=== PATIENT | female | born 1935 | race Caucasian/White ===

== ENCOUNTER 2018-01-29 02:27 | Inpatient (IN) | payer OTHER, MEDICARE ==
[~2018-01-29] VITALS: Ht 165.1 cm; Wt 75.0 kg
[~2018-01-29 02:27] MED LIST: HYDROXYCHLOROQ200 M2 PO; LISINOPRIL-HCT1 EACH PO; METOPROLOL TAR100 M1 PO; OXYCODONE HCL5 M1 PO; VITAMIN D250000 UNIT PO; VITAMIN D350000 UNIT PO
--- NOTE | 2018-01-29 09:44 | Admission Core Measures ---
Acute Coronary Syndrome (CM) ACS Core Measures Acute Coronary Syndrome Diagnosis No Congestive Heart Failure (NEW) CHF Core Measures Congestive Heart Failure Diagnosis No Cerebrovascular Accident CVA Core Measures CVA/TIA Diagnosis No Venous Thromboembolism VTE Core Chandrika (View Protocol) VTE Risk Factors Surgery No Mechanical VTE Prophylaxis d/t N/A MechProphylax Ordered No VTE Pharm Prophylaxis d/t NA PharmProphylax ordered Problem List As ranked by this Provider includes Assessment & Plan 1. Cancer of sigmoid colon 2. Status post reversal of ileostomy HOME MEDS Home Med List Cholecalciferol (Vitamin D3) (Vitamin D3) 50,000 UNIT CAPSULE 1 CAP PO Q30D SUPPLEMENT (Reported) Lisinopril/Hydrochlorothiazide (Lisinopril-Hctz 20-12.5 MG Tab) 20 MG-12.5 MG TABLET 1 TAB PO BID BP (Reported) Metoprolol Tartrate 100 MG TABLET 1 TAB PO DAILY HEART/BP (Reported)
--- NOTE | 2018-01-29 09:50 | Operative Report ---
Operative/Inv Procedure Report Surgery Date: 01/29/18 Name of Procedure: Ileostomy reversal Pre-Operative Diagnosis: Colon cancer status post laparoscopic/robotic low anterior resection with diverting ileostomy Post-Operative Diagnosis: Same Estimated Blood Loss: scant Surgeon/Die Filer: Chris SINGLETON,Reynaldo Sawyer/Rian WYATT Anesthesia: general endotracheal tube Specimens: Ileostomy Operative Indication: Patient status post low anterior resection with diverting ileostomy. Follow-up barium enema shows no evidence of leak. She presents for elective reversal Operative/Procedure Note Note: After consent she is brought to the abnormally supine. General anesthesia obtained and her abdomen was prepped and draped. The skin was excised in elliptical fashion around the stoma. Subcutaneous tissues were dissected with cautery. There was a significant inflammatory reaction around the stoma site, normal for this stage in her healing. We dissected the stoma all the way down to the fascia with cautery and sharp dissection. We eventually got into a plane between the fascia/peritoneum and bowel. We then circumferentially dissected the bowel from the stoma site through that plane. This was treated with sharp dissection. All adhesions to the bowel were lysed. We then identified the cyst to ends of the bowel. It was an end ileostomy with the other and stapled near the terminal ileum that was in the soft tissue. Both areas were cleaned up and sites of transection created. Windows in the mesentery were developed with cautery and the 2 ends of the bowel stapled. This was accomplished with a LANI 80. The vasculature was then taken with the LigaSure device and stoma passed off the field. The bowel was then lined up with 3-0 silk suture and enterotomies created. Side to side anastomosis was created with the LANI 80. The common enterotomy was closed with a reload. The staple line was imbricated centrally where the staple lines converged. This was performed with 3-0 silk sutures in a Lembert fashion. Anastomosis was then expected and intact. The bowel was replaced in the perineal cavity. The wound was irrigated with saline. The fascia was closed in 2 layers of 0 Maxon sutures. Wound was irrigated with saline. Skin closed with shailesh with the central portion left open for packing with 1 inch Nu Gauze. Sterile dressings were applied. Sponge and needle counts are correct. CC: Slim SINGLETON,Jhony; Mike SINGLETON,Errol
--- NOTE | 2018-01-29 10:03 | Patient Discharge Instructions ---
Discharge Instructions General Discharge Information You were seen/treated for: Colon cancer status post laparoscopic/robotic low anterior resection with diverting ileostomy You had these procedures: Ileostomy reversal Watch for these problems: Increased pain, fever, nausea, vomiting, redness, swelling or drainage from incision Call Surgeon to remove: [place] Other wound care: Keep incision clean and dry the visiting nurse will change your dressing every other day. Special Instructions: Visiting nurse: ALGINATE DRESSING TO STOMA every other day take pain meds as needed. low fiber/low residue diet Diet Continue normal diet: No Recommended Diet: Low Residue Activity Full Activity/No Limits: No Activity Self Limited: Yes Pounds, do NOT lift more than: 10 Other activity limits: No heavy lifting or strenous activity until your follow up appointment Acute Coronary Syndrome Inclusion Criteria At DC or during hospital stay patient has or had the following: ACS DIAGNOSIS No Discharge Core Measures Meds if any: Prescribed or Continued at Discharge Meds if any: NOT Prescribed or Continued at Discharge Congestive Heart Failure Inclusion Criteria At DC or during hospital stay patient has or had the following: CHF DIAGNOSIS No Discharge Core Measures Meds if any: Prescribed or Continued at Discharge Meds if any: NOT Prescribed or Continued at Discharge Cerebrovascular accident Inclusion Criteria At DC or during hospital stay patient has or had the following: CVA/TIA Diagnosis No Discharge Core Measures Meds if any: Prescribed or Continued at Discharge Meds if any: NOT Prescribed or Continued at Discharge Venous thromboembolism Inclusion Criteria VTE Diagnosis No VTE Type NONE VTE Confirmed by (Test) NONE Discharge Core Measures - Per Current guidelines, there needs to be overlap - treatment for the first 5 days of Warfarin therapy. - If discharged on Warfarin prior to 5 days of - overlap therapy, the patient will need to be - assessed for post discharge needs including - *Post discharge parental anticoagulation - *Warfarin and/or parental anticoagulation education - *Follow up date to check INR post discharge At least 5 days overlap therapy as Inpatient No Meds if any: Prescribed or Continued at Discharge Note: Overlap Therapy is Warfarin and Anticoagulant Meds if any: NOT Prescribed or Continued at Discharge
[2018-01-29 14:20] VITALS: BP 110/60
--- NOTE | 2018-01-29 15:52 | PN- General Surgery ---
Subjective Subjective: c/o throat pain presently. No nausea or vommitting. NO chest pain or shortness of breath. No flatus. Clements in place. Objective Vital Signs and I&Os Vital Signs Date Time Temp Pulse Resp B/P B/P Pulse O2 O2 Flow FiO2 Mean Ox Delivery Rate 01/29 1420 97.9 72 20 110/60 96 Room Air Intake & Output 01/29 1600 01/29 0800 01/29 0000 01/28 1600 01/28 0800 01/28 0000 Intake Total Output Total Balance Patient 166 lb 160 lb Weight Weight Bed scale Measurement Method Physical Exam: Gen: Alert and oriented x3, no acute distress Cardaic: RRR, s1s2 Pulm: C T A bialterally, nonlabored Abd: Softly distended, dressing intact, bs absent Ext: Neurovascularly grossly intact, bialteral calves soft and non-tender Assessment/Plan Assessment/Plan POD 0 s/p ileostomy reversal -clear liquid -hep sub q for dvt ppx -protonix for gi ppx -oob encouraged -dc clements in am, strict i/o tonight -choloraseptic spray for throat pain now will discuss poc with Dr. Perez Core Measures Venous Thromboembolism VTE Risk Factors Surgery No Mechanical VTE Prophylaxis d/t N/A MechProphylax Ordered No VTE Pharm Prophylaxis d/t NA PharmProphylax ordered
[2018-01-29 16:24] VITALS: BP 130/70
[2018-01-29 18:30] VITALS: BP 112/60
[2018-01-29 22:36] VITALS: BP 118/68
[2018-01-30 02:36] VITALS: BP 122/64
[2018-01-30 06:37] VITALS: BP 110/66
--- NOTE | 2018-01-30 07:28 | PN- General Surgery ---
See Addendum Subjective Subjective: 82 y/o female S/P ileostomy reversal 01/29 Sitting upright in bed without complains. She feels generalized abdominal soreness, feels bowels moving but not passing gas. Objective Vital Signs and I&Os Vital Signs Date Time Temp Pulse Resp B/P B/P Pulse O2 O2 Flow FiO2 Mean Ox Delivery Rate 01/30 0637 97.7 64 20 110/66 98 Room Air 01/30 0236 98.1 58 18 122/64 96 Room Air 01/29 2236 97.8 56 20 118/68 95 /08 2008 82 120/62 01/29 1830 97.9 81 20 112/60 95 Room Air 01/29 1626 Room Air Room Air 01/29 1624 97.8 74 20 130/70 98 Room Air 01/29 1420 97.9 72 20 110/60 96 Room Air Intake & Output 01/30 0800 08/ 0000 0808 1600 01/29 0800 01/29 0000 01/28 1600 Intake Total 840 555 Output Total 550 400 Balance -550 440 555 Intake, IV 600 375 Intake, Oral 240 180 Output, Urine 550 400 Patient 165 lb 166 lb 160 lb Weight Weight Bed scale Measurement Method Physical Exam: alert and oriented, comfortable, answering questions chest- CTA symmetric without rales ronchi or wheeze heart- RRR without MRG Abdmen -rounded without distention dressings CDI, pos BS, voiding without difficulty not passing gas yet bilateral lower extremities without edema or tenderness Assessment/Plan Assessment/Plan POD 1 s/p ileostomy reversal -clear liquid diet advance per bowel function -hep sub q for dvt ppx -protonix for gi ppx -oob encouraged will discuss poc with Dr. Perez Core Measures Venous Thromboembolism VTE Risk Factors Surgery No Mechanical VTE Prophylaxis d/t N/A MechProphylax Ordered No VTE Pharm Prophylaxis d/t NA PharmProphylax ordered
[2018-01-30 08:45] LABS: ABSOLUTE BASOPHIL COUNT 0 /CUMM (0.0-0.2); ABSOLUTE EOSINOPHIL COUNT 0 /CUMM (0.0-0.7); ABSOLUTE GRANULOCYTE CT 10.9 /CUMM (1.4-6.5); ABSOLUTE LYMPH COUNT 1.9 /CUMM (1.2-3.4); ABSOLUTE MONOCYTE COUNT 0.8 /CUMM (0.10-0.60); BASOPHIL % 0.1 % (0.0-2.0); EOSINOPHIL % 0 % (0-5); GRANULOCYTE % 80.2 % (42.2-75.2); HEMATOCRIT 29.5 % (37-47); MEAN CORPUSCULAR HGB 26.4 PG (27.0-31.0); MEAN CORPUSCULAR HGB CONC 33.3 G/DL (33.0-37.0); MEAN CORPUSCULAR VOLUME 79.4 FL (81.0-99.0); MEAN PLATELET VOLUME 8.3 FL (7.4-10.4); PLATELET COUNT 254 /CUMM (130-400); RBC DISTRIBUTION WIDTH 14.3 % (11.5-14.5); RED BLOOD CELL CT 3.72 /CUMM (4.20-5.40); WHITE BLOOD CELL COUNT 13.6 /CUMM (4.8-10.8)
[2018-01-30 10:13] VITALS: BP 110/65
[2018-01-30 14:31] VITALS: BP 155/75
[2018-01-30 22:21] VITALS: BP 118/60
[2018-01-31 06:02] VITALS: BP 130/60
[2018-01-31] MEDS ORDERED: PROTONIX40 M3 PO (07:06)
[2018-01-31] MEDS ORDERED: OXYCODONE HCL5 M1 PO (07:06)
--- NOTE | 2018-01-31 07:07 | PN- Student ---
See Addendum Shannon Luis 01/31/18 0702: Subjective Subjective: This morning the pt is doing well. She passed gas yesterday and was advanced to a regular diet. She said that after eating some fish for dinner she had a BM. Tolerated the reg diet w/o nausea or vomiting. Her pain has been well controlled with pain medication ordered. Pt has been oob and ambulating. No clements, voiding w/o difficulty. Denies cp/sob. Objective Objective: Physical Exam: Gen: O&Ax3, laying comfortably in bed, in no apparent distress Lung: CTA Heart: systolic murmur, distant heart sounds Abd: soft, nt, nd, normoactive bs Skin: warm,dry Results Results: Laboratory Tests 01/30/18 08: Vital Signs Date Time Temp Pulse Resp B/P B/P Pulse O2 O2 Flow FiO2 Mean Ox Delivery Rate 01/31 0602 98.8 52 19 130/60 98 01/30 2221 98.3 64 19 118/60 95 Room Air 01/30 2048 64 118/60 01/30 1600 Room Air 01/30 1431 98.2 65 18 155/75 99 Room Air 01/30 1013 97.5 63 18 110/65 100 Room Air / 0931 64 110/66 / 0930 64 110/66 / 0800 Room Air 01/30 0637 97.7 64 20 110/66 98 Room Air / 0236 98.1 58 18 122/64 96 Room Air / 2236 97.8 56 20 118/68 95 01/29 2008 82 120/62 01/29 1830 97.9 81 20 112/60 95 Room Air 01/29 1626 Room Air Room Air 01/29 1624 97.8 74 20 130/70 98 Room Air 01/29 1420 97.9 72 20 110/60 96 Room Air Last 24 Hours I&Os 01/31 0800 01/31 0000 01/30 1600 Intake Total 850 775 Output Total 875 1100 Balance -25 -325 Intake, IV 375 Intake, Oral 850 400 Number 1 Bowel Movements Output, Urine 875 1100 Laboratory Tests 01/30/18 08: Anion Gap 11, Estimated GFR > 60, BUN/Creatinine Ratio 30.0 H, CBC w Diff NO MAN DIFF REQ, RBC 3.72 L, MCV 79.4 L, MCH 26.4 L, MCHC 33.3, RDW 14.3, MPV 8.3, Gran % 80.2 H, Lymphocytes % 13.9 L, Monocytes % 5.8, Eosinophils % 0, Basophils % 0.1, Absolute Granulocytes 10.9 H, Absolute Lymphocytes 1.9, Absolute Monocytes 0.8 H, Absolute Eosinophils 0, Absolute Basophils 0 Microbiology Date/Time Procedure - Status Source Growth 01/30 748 Urine Culture - RES URINE ROUT Orders Procedure Date/time Status CBC WITHOUT DIFFERENTIAL 01/31 600 Active Low Fiber Diet 01/30 D Active CBC WITHOUT DIFFERENTIAL 01/30 600 Complete BASIC ELECTROLYTES PLUS BUN&CR 01/30 600 Complete Discontinue Nursing Interventi 01/30 UNK Active Clear Liquid Diet 01/29 L Complete RT: Evaluation 01/29 1620 Active Weight 01/29 1152 Active Vital Signs 01/29 1152 Active Teach/Educate 01/29 1152 Active Pain Treatment and Response 01/29 1152 Active Nutritional Intake, Monitor 01/29 1152 Active Isolation 01/29 1152 Active Intake & Output 01/29 1152 Active Patient Care Conference 01/29 1152 Active Activity/Ambulation 01/29 1152 Active INCENTIVE SPIROMETRY TRX (GEN) 01/29 113 Complete Pathway - chart 01/29 1136 Active Admit to inpatient 01/29 1136 Active Patient Data 01/29 1136 Active Wound Care/Dressing 01/29 1136 Active VTE Mechanical Prophylaxis 01/29 1136 Active Vital Signs 01/29 1136 Active Intake & Output 01/29 1136 Active Clements, Insertion/Removal/Asses 01/29 1136 Complete Activity/Ambulation 01/29 1136 Active TRANSFER ORDERS 01/29 0947 Complete Code Status 01/29 0944 Active CULTURE,URINE 01/29 900 Active PATHOLOGY SPECIMEN 01/29 09 Complete TYPE & SCREEN (NOT X-MATCH) 01/29 0615 Complete INCENTIVE SPIROMETRY TRX CHG 01/29 UNK Complete TRC EVALUATION (GEN) 01/29 UNK Complete THERAPIST ORDERS 01/29 UNK Complete PHARMACY COMMUNICATION FORM 01/29 UNK Active Anion Gap 11, Estimated GFR > 60, BUN/Creatinine Ratio 30.0 H, CBC w Diff NO MAN DIFF REQ, RBC 3.72 L, MCV 79.4 L, MCH 26.4 L, MCHC 33.3, RDW 14.3, MPV 8.3, Gran % 80.2 H, Lymphocytes % 13.9 L, Monocytes % 5.8, Eosinophils % 0, Basophils % 0.1, Absolute Granulocytes 10.9 H, Absolute Lymphocytes 1.9, Absolute Monocytes 0.8 H, Absolute Eosinophils 0, Absolute Basophils 0 Microbiology 01/30 748 URINE ROUT: Urine Culture - RES Assessment/Plan Assessment: Pt is 82 yo female that is POD 2 s/p ileostomy reversal. Plan: -Tolerating reg diet, passing flatus, 1 BM last night -Na was 128 yesterday, will check BMP this morning, may need repletion -Pain well controlled w/ pain medication -No clements, voiding w/o difficulty -Heparin sq and alps for dvt ppx -Protonix for gi ppx -C/w home medications -encourage IS, ambulation -Possible discharge today, will discuss with Darnell Boyle 01/31/18 0717: Resident Review Statement Resident Statement: examined this patient Other Findings: agree with above Aginate dressing QOD (again tomorrow) tolerating LRD, + bowel function pain controlled likely DC home today w vna services,will d/w Dr Perez.
[2018-01-31 08:31] LABS: ABSOLUTE BASOPHIL COUNT 0 /CUMM (0.0-0.2); ABSOLUTE EOSINOPHIL COUNT 0.5 /CUMM (0.0-0.7); ABSOLUTE GRANULOCYTE CT 5.1 /CUMM (1.4-6.5); ABSOLUTE MONOCYTE COUNT 0.7 /CUMM (0.10-0.60); BASOPHIL % 0.4 % (0.0-2.0); EOSINOPHIL % 5.2 % (0-5); GRANULOCYTE % 54.7 % (42.2-75.2); HEMATOCRIT 29.6 % (37-47); MEAN CORPUSCULAR HGB 26.4 PG (27.0-31.0); MEAN CORPUSCULAR HGB CONC 32.7 G/DL (33.0-37.0); MEAN CORPUSCULAR VOLUME 80.6 FL (81.0-99.0); MEAN PLATELET VOLUME 8.6 FL (7.4-10.4); PLATELET COUNT 225 /CUMM (130-400); RBC DISTRIBUTION WIDTH 15.4 % (11.5-14.5); RED BLOOD CELL CT 3.67 /CUMM (4.20-5.40); WHITE BLOOD CELL COUNT 9.3 /CUMM (4.8-10.8)
[2018-01-31 10:52] VITALS: BP 144/68
--- NOTE | 2018-01-31 11:14 | Surgical Discharge Summary ---
Visit Information Visit Dates Admission Date: 01/29/18 Discharge Date: 01/31/18 History of Present Illness Chief Complaint: ileostomy Medical History Blood Transfusion Hx: No Neurological: NONE EENT: NONE, cataracts Cardiovascular: hypertension Respiratory: NONE Hepatic: NONE Renal: NONE Musculoskeletal: NONE Psychiatric: NONE Endocrine: NONE Blood Disorders: NONE Cancer(s): colon/rectal cancer [employer]/Reproductive: NONE History of MRSA: No History of VRE: No History of CDIFF: No Isolation History: Standard Surgical History Pertinent Surgical History: cholecystectomy, colon resection, Ileostomy reversal Psychosocial History Where Do You Live? Home Who Do You Live With? Spouse Services at Home: None What is Your Primary Language? Greenlandic Review of Systems: see preop hp Hospital Course Course Attending Physician: Reynaldo Perez MD Primary Care Physician: Jhony Smalls MD Hospital Course: Patient admitted to the hospital floor after undergoing elective ileostomy reversal. She had prompt return of bowel function and her diet was advanced. She was discharged on hospital day #2 Allergies: Coded Allergies: No Known Allergies (01/28/18) Significant Procedures: Ileostomy reversal Disposition Summary Disposition Principal Diagnosis: Ileostomy Additional Diagnosis: Colon cancer Discharge Disposition: home health services Discharge Instructions General Discharge Information Code Status: Full Code Patient's Diet: Regular low residual Patient's Activity: No lifting greater than 20 pounds Follow-Up Instructions/Appts: 2 weeks for staple removal Medications at Discharge Discharge Medications: Continue taking these medications: Metoprolol Tartrate (Metoprolol Tartrate) 100 MG TABLET 1 Tablet ORAL DAILY Comments: Last Taken: 01/31/18 Time: 11:00 AM Lisinopril/Hydrochlorothiazide (Lisinopril-Hctz 20-12.5 MG Tab) 20 MG-12.5 MG TABLET 1 Tablet ORAL TWICE DAILY Comments: Last Taken: 01/30/18 Time: 9:00 PM Cholecalciferol (Vitamin D3) (Vitamin D3) 50,000 UNIT CAPSULE 1 Capsule ORAL ONCE A MONTH Comments: NOT GIVEN IN HOSPITAL Start taking the following new medications: Oxycodone HCl (Oxycodone HCl) 5 MG TABLET 1-2 Tablet ORAL Every 4 hours as needed for PAIN Qty = 30 No Refills Pantoprazole Sodium (Protonix) 40 MG TABLET.DR 1 Tablet ORAL DAILY Qty = 7 No Refills Copies To: Jhony Smalls MD
== END 2018-01-31 13:47 | disposition home health service (06) | DRG 330 ==
LOC: SDA 02:27 → 2NA 02:27 → ENRESERV 10:41 → ENTRNSPT 11:02 → EDTRNSPTSTS 11:17 → EDTRNSPT 11:17 → 2NA 11:28 → CMPTRNSPT 11:44 → ENPENDDIS 01-31 10:17 → ENTRNSPT 01-31 13:37 → EDTRNSPTSTS 01-31 13:42 → EDTRNSPT 01-31 13:42 → 2NA 01-31 13:47 → CMPTRNSPT 01-31 13:56
PROVIDERS: Physician Assistant Surgical
PROC: 3E0T3BZ Introduction of Anesthetic Agent into Peripheral Nerves and Plexi, Percutaneous Approach (ICD-10-PCS; principal; 2018-01-29)
PROC: 0DBB0ZZ Excision of Ileum, Open Approach (ICD-10-PCS; principal; 2018-01-29)
DX: Z43.2 Encounter for attention to ileostomy (principal); E87.1 Hypo-osmolality and hyponatremia; I10 Essential (primary) hypertension; Z90.49 Acquired absence of other specified parts of digestive tract
CPT/HCPCS: 2NAP; 36415; 36592; 82436; 87086; J0131; J0690; J1644; J2405; J3490; J7042